=== PATIENT | male | born 1955 ===

== ENCOUNTER 2020-04-07 12:56 | Inpatient (IN) | payer MEDICARE, OTHER ==
[~2020-04-07] VITALS: Ht 165.1 cm; Wt 66.2 kg
[2020-04-07] MEDS ORDERED: DOCU100C36 PO (13:14)
[2020-04-07] MEDS ORDERED: QUET50TA PO (13:14)
[2020-04-07] MEDS ORDERED: MIRT-121 PO (13:14)
--- NOTE | 2020-04-07 14:00 | NUR ---
pt transfered to [facility] in stable condition.
[2020-04-07 14:07] LABS: *BLOOD, URINE TRACE (NEGATIVE); *COLOR,URINE YELLOW (YELLOW); *KETONES,URINE 3+ (NEGATIVE); *UROBILINOGEN,URINE 0.2 E.U./dl (NORMAL); LEUKOCYTE ESTERASE ,URINE NEGATIVE (NEGATIVE); NITRITE, URINE NEGATIVE (NEGATIVE); PH,URINE 6.5 (5.0-8.0); UGLUCOSE NEGATIVE (NEGATIVE)
[2020-04-07 14:08] LABS: *BILIRUBIN,URIN 1+ (NEGATIVE); *CLARITY,URINE SLIGHTLY CLOUDY (CLEAR)
--- NOTE | 2020-04-07 14:15 | NUR ---
PT ADMITTED ON 515 FOR SUICIDAL IDEATIONS. ARRIVED TO UNIT ON W/C ACCOMPANIED BY HAND LOOM WEAVER. UPON FACE TO FACE, PT IS CALM AND COOPERATIVE. AOX4. ADEQUATE INSIGHT ON WHY HE IS HERE. DENIES SI AT THIS TIME. STATES HE "JUST HAD A BAD DAY YESTERDAY" AND THAT HE IS SIKHISM AND "I WOULD NEVER EVER KILL MYSELF. IT WAS A MISTAKE." PT ABLE TO VERBALIZE ALL NEEDS ADEQUATELY. DENIES PAIN OR DISCOMFORT AT THIS TIME. MOOD CONGRUENT AFFECT. PT DENIES DEPRESSION, BUT DOES ADMIT TO FEELING ANXIETY OVER HOMELESS LIVING SITUATION. IN NO ACUTE DISTRESS. PATIENTS RIGHTS HANDBOOK GIVEN TO PT. ALL ADMITTING PAPERWORK SIGNED.
[2020-04-07] MEDS: IBUPROFEN 400 MG TABLET PO ONE ×2 (14:20→14:43)
[2020-04-07] MEDS ORDERED: LORAZEPAM 0.5 MG TABLET PO PRN (14:30)
[2020-04-07] MEDS ORDERED: MAG HYDROX/AL HYDROX/SIMETH 30 ML LIQUID UDC PO PRN (14:30)
[2020-04-07] MEDS ORDERED: MAGNESIUM HYDROXIDE 30 ML LIQUID UDC PO PRN (14:30)
[2020-04-07] MEDS ORDERED: TEMAZEPAM 7.5 MG CAPSULE PO PRN (14:30)
[2020-04-07] MEDS ORDERED: ACETAMINOPHEN 325 MG TABLET PO PRN (14:30)
[2020-04-07 15:00] VITALS: BP 130/69
--- NOTE | 2020-04-07 15:23 | NUR ---
PT DENIES HOMELESSNESS. STATES HE LIVES WITH HIS SISTER IN "A HOUSE THAT'S ALREADY PAID OFF." PT DENIES EVER MAKING ANY SUICIDAL STATEMENTS AT THIS TIME.
[2020-04-07 18:40] LABS: BACTERIA,URINE FEW /HPF (NONE SEEN); RBC,URINE 0-3 /HPF (0-3); SQUAMOUS EPITHELIAL CELL,UR NONE SEEN /HPF (NONE SEEN); WBC,URINE 0-3 /HPF (0-3)
[2020-04-07 20:07] VITALS: BP 139/88
[2020-04-08 07:30] VITALS: BP 129/77
[2020-04-08] MEDS: DOCUSATE SODIUM 100 MG CAPSULE PO SCH ×2 (08:37→16:26)
[2020-04-08 09:49] LABS: BASOPHILS % (AUTO) 0.5 % (0.0-2.0); EOSINOPHILS # (AUTO) 0.1 K/uL (0.0-0.7); EOSINOPHILS % (AUTO) 3.5 % (0.0-7.0); HEMATOCRIT 45.1 % (36.7-47.1); HEMOGLOBIN 15.7 g/dL (12.5-16.3); LYMPHOCYTES # (AUTO) 0.7 K/uL (20.0-40.0); LYMPHOCYTES % (AUTO) 16.9 % (20.5-51.5); MEAN CORPUSCULAR HEMOGLOBIN 35.3 uug (23.8-33.4); MEAN CORPUSCULAR HGB CONC 35 g/dL (32.5-36.3); MEAN CORPUSCULAR VOLUME 101.9 fL (73.0-96.2); MONOCYTES # (AUTO) 0.6 K/uL (2.0-10.0); MONOCYTES % (AUTO) 14.5 % (0.0-11.0); NEUTROPHILS # (AUTO) 2.6 K/uL (1.8-8.9); NEUTROPHILS % (AUTO) 64.6 % (38.5-71.5); PLATELET COUNT (AUTO) 64 K/uL (152-348); RED BLOOD CELL COUNT(AUTO) 4.43 MIL/uL (4.06-5.63); WHITE BLOOD COUNT (AUTO) 4.1 K/uL (3.6-10.2)
[2020-04-08 11:21] LABS: CREATININE 0.9 mg/dL (0.6-1.3); MAGNESIUM 2.2 mg/dL (1.8-2.4); PHOSPHOROUS 2.1 mg/dL (2.5-4.9); POTASSIUM 3.8 mmol/L (3.5-5.1)
--- NOTE | 2020-04-08 12:08 | NUR ---
Firearms Report: Lumber Estimator completed and submitted a [facility] firearms report for 5150 grave disability certification. A copy of report has been placed in patient chart.
--- NOTE | 2020-04-08 12:09 | NUR ---
SW Substance Abuse Intervention: Patient was provided with a brief substance abuse intervention and referred to [facility] ([phone]), [facility] ([phone]), and [facility] ([phone]).
--- NOTE | 2020-04-08 12:52 | NUR ---
Initial Discharge Plan: [place] [address] [place] [address]. Pt states he has a sister but was unable to give information. Pt would like to return back home upon discharge. This SW will work with MD, treatment team, and family to help coordinate discharge plan.
--- NOTE | 2020-04-08 12:52 | NUR ---
SW Family Contact: Pt does not have any supportive contact at this moment.
--- NOTE | 2020-04-08 13:36 | NUR ---
SW Family Contact: This conventional underwriter spoke with patient's sister Dinah ([phone]) and discussed treatment/discharge plan. Per Dinah, she stated "pt just wants attention that is why he was brought to the hospital". Upon discharge, Dinah will apple picker pt.
[2020-04-08 15:14] VITALS: BP 149/88
--- NOTE | 2020-04-08 15:15 | NUR ---
[facility] Coordinator: This SW received a phone call from Dennis Alexander ([phone]) who is a hospice social worker coordinator and follows pt.
[2020-04-08 15:43] LABS: THYROID STIMULATING HORMONE 1.619 mIU/mL (0.358-3.740)
[2020-04-08] MEDS ORDERED: NEUTRA PHOS PACKET PO ONE (16:00)
[2020-04-08 19:45] VITALS: BP 154/88
[2020-04-08] MEDS: MIRTAZAPINE 15 MG TABLET PO SCH (20:05)
[2020-04-09 05:17] LABS: EOSINOPHILS % (MANUAL) 4 % (0-8); LYMPHOCYTES % (MANUAL) 19 % (20-40); MONOCYTES % (MANUAL) 11 % (2-10); NEUTROPHILS % (MANUAL) 66 % (42-75)
--- NOTE | 2020-04-09 06:52 | NUR ---
GPS: Pt.slept for 7.15 minutes. Denies wanting to hurt self. Re-assured prn. Safe environment provided.
[2020-04-09 07:30] VITALS: BP 113/73
[2020-04-09] MEDS: DOCUSATE SODIUM 100 MG CAPSULE PO SCH ×2 (08:32→17:00)
--- NOTE | 2020-04-09 11:37 | NUR ---
SW Family Contact: This writer editor spoke with patient's sister Dinah ([phone]) who stated she will come to forklift picker patient's car keys. This writer editor notified nurses.
--- NOTE | 2020-04-09 11:42 | NUR ---
SW Individual Note: leadite worker met with patient for brief counseling and assessed for level of suicidality. leadite worker assessed for suicidal thoughts, patient denied suicidal thoughts. Patient expressed that he is not SI. Patient minimizes his symptoms and states "he was never SI and does not know why he was brought to the hospital". leadite worker provided comfort, actively listened, and provided insight to why he was brought to the hospital and how it was serious.
[2020-04-09 16:33] VITALS: BP 120/84
[2020-04-09 20:00] VITALS: BP 109/75
[2020-04-09] MEDS: MIRTAZAPINE 15 MG TABLET PO SCH (20:21)
[2020-04-10 07:30] VITALS: BP 102/64
[2020-04-10] MEDS: DOCUSATE SODIUM 100 MG CAPSULE PO SCH ×3 (09:14→16:11)
[2020-04-10 16:00] VITALS: BP 128/75
[2020-04-10 20:00] VITALS: BP 121/67
[2020-04-10] MEDS: MIRTAZAPINE 15 MG TABLET PO SCH (20:37)
[2020-04-11 07:30] VITALS: BP 107/64
[2020-04-11] MEDS: DOCUSATE SODIUM 100 MG CAPSULE PO SCH ×2 (08:41→16:13)
--- NOTE | 2020-04-11 10:41 | NUR ---
[facility] Hearing: Patient had probable cause hearing today and it was upheld for grave disability.
[2020-04-11 16:50] VITALS: BP 123/72
--- NOTE | 2020-04-11 17:30 | NUR ---
Gps/Carpenter Prototype- Had been cooperative with staff, attends and participated in his group therapy, stayed in the activity room during meals, showered self this pm after set up.
[2020-04-11 20:00] VITALS: BP 119/82
[2020-04-11] MEDS: MIRTAZAPINE 15 MG TABLET PO SCH (20:29)
--- NOTE | 2020-04-12 06:38 | NUR ---
GPS/Rn - No abnormal noted, Pt a/ox4, able to verbalize all needs and denied SI. Pt sleep well during night and no behavior noted. Cooperative with care and staffs.
[2020-04-12 07:30] VITALS: BP 103/65
[2020-04-12] MEDS: DOCUSATE SODIUM 100 MG CAPSULE PO SCH ×2 (09:00→17:00)
[2020-04-12 13:00] VITALS: BP 103/70
--- NOTE | 2020-04-12 13:36 | NUR ---
[facility] Coordination of Care: Patient will follow up with (Auto Body Mechanic) Dr. Webster located at [facility] [address], [place] [address]; ([phone]) scheduled on May 08 at 8:30AM VIA TELEPHONE and primary doctor will monitor/manage psychotropic medications and will refer pt a psychiatrist. Per Clarisse, decay control operator she scheduled the appointment.
[2020-04-12 20:00] VITALS: BP 123/75
[2020-04-12] MEDS: MIRTAZAPINE 15 MG TABLET PO SCH (20:11)
[2020-04-13 07:30] VITALS: BP 105/64
[2020-04-13] MEDS: DOCUSATE SODIUM 100 MG CAPSULE PO SCH ×2 (08:18→16:59)
[2020-04-13 15:56] VITALS: BP 100/61
[2020-04-13 20:00] VITALS: BP 129/81
[2020-04-13] MEDS: MIRTAZAPINE 15 MG TABLET PO SCH (20:32)
--- NOTE | 2020-04-14 06:07 | NUR ---
PATIENT ALERT, NO COMPLAIN OF PAIN, COOPERATIVE WITH CARE AND MEDICATIONS, SLEPT 8.45 MINUTES, CONT TO MONITOR.
[2020-04-14 07:30] VITALS: BP 109/60
[2020-04-14] MEDS: DOCUSATE SODIUM 100 MG CAPSULE PO SCH ×2 (08:03→16:00)
[2020-04-14 16:00] VITALS: BP 107/63
[2020-04-14 20:00] VITALS: BP 123/65
[2020-04-14] MEDS: MIRTAZAPINE 15 MG TABLET PO SCH (20:19)
--- NOTE | 2020-04-14 23:39 | NUR ---
Received patient in his room, calm and cooperative. Semi fair judgement and insight. No behavioral issue at this time. Med complaint. Patient will remain in a psych facility for further evaluation and treatment.
[2020-04-15 07:30] VITALS: BP 119/73
[2020-04-15] MEDS: DOCUSATE SODIUM 100 MG CAPSULE PO SCH ×2 (08:23→16:55)
--- NOTE | 2020-04-15 15:00 | NUR ---
[facility] Family Contact: This contract technical writer left a message on sister Dinah ([phone]) voicemail stating pt will be discharged 04/16 and stated pt can take the bus home.
--- NOTE | 2020-04-15 15:15 | NUR ---
SW Note: Patient wants to take the bus home. This junior copywriter will provide voucher.
[2020-04-15 15:16] VITALS: BP 129/73
--- NOTE | 2020-04-15 16:27 | NUR ---
EARLY ENTRY WEDNESDAY DISCHARGE: Patient [place] be discharged [place] [address] [place] [address]; ([phone]). Patients yaron Heredia ([phone]) via family pecan picker at 10AM. Patients yaron marrufo ([phone]) is aware. Patients sister Dinah is aware and agreeable with discharge plan and stated pt can take a bus. Patient is aware and agreeable to patients discharge. Upon discharge, patient appear to be calm, cooperative and happy to be going home. Patient denies suicidal and homicidal ideation. Patient is alert and oriented x4. Patient will follow up with (Enterprise Integration Architect) Dr. Enrique Montana located at [address] [address]; ([phone]) scheduled on May 08 at 8:30AM VIA TELEPHONE and primary doctor will monitor/manage psychotropic medications and will refer pt a psychiatrist. Patient was provided referrals to the following substance abuse programs: [facility] ([phone]); [facility] [address] [place] [address] ([phone]); [facility] [address] [facility] [address] ([phone]); [facility] ([phone]); [facility] ([phone]); [facility] ([phone]); [facility] ([phone]). Patient presented with euthymic and congruent mood.
--- NOTE | 2020-04-15 16:28 | NUR ---
[facility] FAMILY CONTACT: Patients yaron Heredia ([phone]) via family pick out hand at 10AM. Niece will pick out hand pt 04/16.
[2020-04-15 20:00] VITALS: BP 119/70
[2020-04-15] MEDS: MIRTAZAPINE 15 MG TABLET PO SCH (20:54)
--- NOTE | 2020-04-16 04:38 | NUR ---
Received Pt in his room asleep, arouses easily. A+Ox4, presents with flat affect and low mood. Pt is quiet, withdrawn, isolative, and seclusive to his room. Pt encouraged to socialize with his peers and attend therapy groups. Pt declined and remained in his room the entire shift. Denied any current SI and verbally contracts for safety. Compliant with medications, follows unit rules. VS stable, denied pain.
[2020-04-16 07:30] VITALS: BP 125/63
[2020-04-16] MEDS: DOCUSATE SODIUM 100 MG CAPSULE PO SCH (08:18)
--- NOTE | 2020-04-16 09:45 | NUR ---
Patient discharged home today, Patients yaron Heredia via family pick patient up at 0945 am. all personal belonging returned to patient, discharge instruction given to patient,vital sign stable denies any pain or discomfort.
== END 2020-04-16 09:45 | disposition home or self-care (01) | DRG 885 ==
LOC: ER 13:00 → GPS 14:10
PROVIDERS: ADMIT Psychiatry & Neurology Psychiatry; ATTEND Student in an Organized Health Care Education/Training Program
DX: F33.2 Major depressive disorder, recurrent severe without psychotic features (principal); R45.851 Suicidal ideations; E87.1 Hypo-osmolality and hyponatremia; F10.20 Alcohol dependence, uncomplicated; Z87.891 Personal history of nicotine dependence; D69.6 Thrombocytopenia, unspecified; E83.39 Other disorders of phosphorus metabolism
CPT/HCPCS: 36415; 70030-TC; 71045; 83735; 84100; 84443; 85025; 93005; A4663